=== PATIENT | male | born 1975 | race Caucasian/White ===

== ENCOUNTER 2018-12-31 09:37 | Outpatient (CLI) | payer BC ==
--- NOTE | 2018-12-31 11:43 | Magnetic Resonance Report ---
MRI LUMBAR SPINE WITHOUT CONTRAST INDICATION / CLINICAL INFORMATION: M54.5 LOW BACK PAIN/M51.27 OTHER INTERVERTEBRAL DISC DISPLACEMENT. TECHNIQUE: Multisequence, multiplanar images of the lumbar spine were obtained. COMPARISON: None available. FINDINGS: TRANSITIONAL VERTEBRAL ANATOMY: Based upon the administration of the lowest rib bearing vertebrae I a m assuming that there is partial lumbarization of the first sacral vertebrae. A santamaria image has been cr eated and added to the patient's PACS folder to demonstrate the numbering scheme used in this report. ALIGNMENT: Normal alignment is maintained throughout the lumbar region. VERTEBRAE:Reactive changes secondary to degenerative disc disease are observed at inferior endplate L 5 and superior endplate S1. Otherwise normal bone marrow signal intensity is maintained throughout th e lumbar region. Vertebral morphology is normally preserved throughout. DISC MORPHOLOGY: Disc height and disc signal intensity are reduced at the L5-S1 level. A hypoplastic disc is present at the S1-2 level. Disc height and disc signal intensity are normally maintained thro ughout the remainder of the lumbar region. VISUALIZED SPINAL CORD: Distal thoracic spinal cord, conus and nerve roots of the cauda equina all guo ve an unremarkable appearance. Conus terminates at about the level of the inferior endplate of L1. WMOUH-NI-AAHCC ANALYSIS: L1-2: No significant abnormality. L2-3: No significant abnormality. L3-4: No significant abnormality. L4-5: No significant abnormality. L5-S1: Disc desiccation is noted. There is a large right paracentral and lateral recess disc extrusio n with compression of the thecal sac and compression of the right S1 nerve root in its lateral recess . L5 nerve root neuroforamina are adequately maintained. S1-2: Hypoplastic disc is present at this transitional level. Partial lumbarization of S1 is noted as described above. PARASPINAL SOFT TISSUES: Evaluation of the paraspinous soft tissues reveals no definite abnormalities . IMPRESSION: 1. 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 2. Large right paracentral and lateral recess disc extrusion L5-S1 with compression of the thecal sac and right S1 nerve root. Signer Name: Ruperto Calles MD Signed: 12/31/2018 11:39 AM Workstation Name: [id number]
== END 2018-12-31 09:38 | disposition home or self-care (01) ==
LOC: MRI 09:37
PROVIDERS: ATTEND Internal Medicine
DX: M51.87 Other intervertebral disc disorders, lumbosacral region (principal); M51.27 Other intervertebral disc displacement, lumbosacral region; F17.210 Nicotine dependence, cigarettes, uncomplicated
CPT/HCPCS: 72148

== ENCOUNTER 2019-01-19 09:39 | Observation (INO) | payer BC ==
[2019-01-12 12:40] LABS: Basophils % (Auto) 0.6 % (0.0-1.8); Eosinophils # (Auto) 0.2 K/mm3 (0.0-0.4); Eosinophils % (Auto) 2.3 % (0.0-4.3); Hematocrit 47.9 % (35.5-45.6); Hemoglobin 16.1 gm/dl (11.8-15.2); Lymphocytes # (Auto) 2.2 K/mm3 (1.2-5.4); Lymphocytes % (Auto) 29.3 % (13.4-35.0); Mean Corpuscular HGB Conc 34 % (32-34); Mean Corpuscular Volume 88 fl (84-94); Monocytes # (Auto) 0.3 K/mm3 (0.0-0.8); Monocytes % (Auto) 4.7 % (0.0-7.3); Platelet Count 232 K/mm3 (140-440); Red Blood Count 5.43 M/mm3 (3.65-5.03); Red Cell Distribution Width 13.4 % (13.2-15.2)
[2019-01-12 12:57] LABS: Alanine Aminotransferase 55 units/L (7-56); Albumin 4.8 g/dL (3.9-5); BUN/Creatinine Ratio 20; Blood Urea Nitrogen 14 mg/dL (9-20); Hemolysis Index 12
--- NOTE | 2019-01-12 18:26 | Anesthesia Consultation ---
Anesthesia Consult and Med Hx Date of service: 01/12/19 - Airway Anesthetic Teeth Evaluation: Caps ROM Head & Neck: Adequate Mental/Hyoid Distance: Adequate Mallampati Class: Class II Intubation Access Assessment: Good - Pulmonary Exam CTA: Yes - Cardiac Exam Cardiac Exam: RRR - Pre-Operative Health Status ASA Pre-Surgery Classification: ASA2 Proposed Anesthetic Plan: General - Pulmonary Hx Smoking: Yes (OCC SMOKER ( NOT EVERYDAY)) Hx Sleep Apnea: No (GAGE PRE SCREEN LOW RISK.) - Cardiovascular System Hx Hypertension: No - Central Nervous System Hx Back Pain: Yes (WITH RT LEG PAIN) - Other Systems Hx Alcohol Use: Yes (BEER ON OCCASION) Hx Cancer: No
--- NOTE | 2019-01-19 08:26 | Short Stay Summary ---
Short Stay Documentation Date of service: 01/19/19 - History H&P: obtained from office Past Medical History: No medical history Past Surgical History: No surgical history Social history: no significant social history - Allergies and Medications Current Medications: Allergies No Known Allergies Allergy (Verified 02/06/13 07:03) Home Medications Medication Instructions Recorded Confirmed Last Taken Type HYDROcodone/APAP 5-325 [[place] 1 each PO Q6HR PRN #60 tablet 02/06/13 01/09/19 Unknown Rx 5/325 mg] Active Medications Gabapentin (Gabapentin) 300 mg PO PREOP NR Stop: 01/19/19 23:59 Lactated Ringer's (Lactated Ringers) 1,000 mls @ 100 mls/hr IV DIRECT GAURAV Cefazolin Sodium (Ancef/Sterile Water 2 Gm/20 Ml) 2 gm in 20 mls @ 80 mls/hr IV PREOP NR; Protocol Midazolam HCl (Versed) 2 mg IV PREOP NR Stop: 01/19/19 23:59 - Physical exam General appearance: no acute distress Integumentary: no rash HEENT: Atraumatic Lungs: Clear to auscultation Breasts: deferred Heart: Regular rate Gastrointestinal: normal Male Genitourinary: deferred Female Genitourinary: deferred Rectal Exam: deferred Extremities: no ischemia Neurological: Normal gait, Normal speech, Sensation intact, Other (right foot drop) Short Stay Discharge Plan Follow up with: KURT LAZARO MD [Primary Care Provider] - 7 Days
[~2019-01-19 09:39] MED LIST: GABAPENTIN 300 MG CAP PO NR; MIDAZOLAM 2 MG/2 ML INJ IV NR; ceFAZolin/Water 2 GM/20 ML 2 GM/20 ML SYRINGE IV NR
[2019-01-19] MEDS ORDERED: SODIUM CHLORIDE 0.9% 250ML 250 ML ONE (09:53)
[2019-01-19] MEDS ORDERED: SODIUM CHLORIDE P/F VIAL 10 ML 10 ML ONE (09:53)
[2019-01-19] MEDS ORDERED: LIDOCAINE 1%/EPINEPHRINE 1:100,000 VIAL (20 ML) INFILTRATI ONE ×2 (09:53→12:09)
[2019-01-19] MEDS ORDERED: BACITRACIN 50,000 UNIT VIAL ONE (09:54)
[2019-01-19] MEDS ORDERED: BUPIVACAINE/PF (0.25%) 2.5 MG/ML 30 ML VIAL INFILTRATI ONE (09:56)
[2019-01-19] MEDS ORDERED: THROMBIN (RECOMBINANT) 5,000 UNIT VIAL TP ONE ×3 (09:56→13:00)
[2019-01-19] MEDS ORDERED: CALCIUM CHLORIDE 1,000 MG/10 ML SYRINGE IV ONE (10:07)
[2019-01-19] MEDS: LACTATED RINGERS 1,000 ML IV SCH ×2 (10:15→19:00)
[2019-01-19] MEDS ORDERED: HYDROmorphone 1 MG/1 ML INJ IV PRN ×2 (10:18→14:29)
[2019-01-19] MEDS ORDERED: ONDANSETRON 4 MG/2 ML INJ IV PRN ×2 (10:18→14:29)
--- NOTE | 2019-01-19 10:18 | Anesthesia Day of Surgery ---
Anesthesia Day of Surgery - Day of Surgery Patient Examined: Yes Patient H&P Reviewed: Yes Patient is NPO: Yes
[2019-01-19] MEDS ORDERED: GELATIN SPONGE SIZE 100 TP ONE ×2 (11:04→12:30)
[2019-01-19] MEDS ORDERED: HYDROmorphone 1 MG/1 ML INJ ONE (11:12)
[2019-01-19] MEDS ORDERED: ROCURONIUM 50 MG/5 ML INJ IV ONE ×2 (11:12→13:30)
[2019-01-19] MEDS ORDERED: LIDOCAINE MPF (2%) 20 MG/1 ML VIAL 5 ML ONE (11:12)
[2019-01-19] MEDS ORDERED: PROPOFOL 200 MG/20 ML VIAL IV ONE (11:12)
[2019-01-19] MEDS ORDERED: SODIUM CHLORIDE 0.9% P/F 10 ML VIAL INFILTRATI ONE (12:00)
[2019-01-19] MEDS ORDERED: SODIUM CHLORIDE 0.9% 250 ML IVPB IR ONE (12:15)
[2019-01-19] MEDS ORDERED: BACITRACIN 50,000 UNIT VIAL IR ONE (13:03)
[2019-01-19] MEDS ORDERED: methylPREDNISolone ACETATE 40 MG/1 ML INJ ONE (13:36)
[2019-01-19] MEDS ORDERED: methylPREDNISolone ACETATE 40 MG/1 ML INJ INTRA-ARTI ONE (13:36)
[2019-01-19] MEDS ORDERED: BUPIVACAINE/PF (0.5%) 5 MG/1 ML 30 ML VIAL INFILTRATI ONE ×2 (13:52→13:53)
[2019-01-19] MEDS ORDERED: NEOSTIGMINE 10MG/10 ML INJ MDV ONE (14:23)
[2019-01-19] MEDS ORDERED: GLYCOPYRROLATE 0.4 MG/2 ML INJ ONE (14:23)
[2019-01-19] MEDS ORDERED: ONDANSETRON 4 MG/2 ML INJ ONE (14:23)
[2019-01-19] MEDS ORDERED: KETOROLAC 30 MG/1 ML INJ ONE (14:23)
[2019-01-19] MEDS ORDERED: PROMETHAZINE 25 MG RECT SUPP PR PRN (14:29)
[2019-01-19] MEDS ORDERED: CYCLOBENZAPRINE 10 MG TAB PO PRN (14:29)
[2019-01-19] MEDS ORDERED: ZOLPIDEM 5 MG TAB PO PRN (14:29)
[2019-01-19] MEDS ORDERED: NALOXONE 0.4 MG/1 ML INJ IV PRN (14:29)
[2019-01-19] MEDS ORDERED: METOCLOPRAMIDE 10 MG/2 ML INJ IV PRN (14:29)
[2019-01-19] MEDS ORDERED: MORPHINE 4 MG/1 ML INJ IV PRN (14:29)
[2019-01-19] MEDS ORDERED: oxyCODONE /ACETAMINOPHEN 5-325MG TAB PO PRN (14:29)
[2019-01-19] MEDS ORDERED: ACETAMINOPHEN 325 MG TAB PO PRN (14:29)
[2019-01-19] MEDS ORDERED: KETOROLAC 30 MG/1 ML INJ IV PRN (14:29)
[2019-01-19] MEDS ORDERED: BENZOCAINE/MENTHOL LOZENGE MM PRN (14:29)
--- NOTE | 2019-01-19 14:42 | Operative Report ---
Operative Report Operative Report: DATE OF PROCEDURE: 01/19/2019 PREOPERATIVE DIAGNOSIS: L5-S1 herniated disc POSTOPERATIVE DIAGNOSIS: 5 S1 herniated disc OPERATIVE PROCEDURE: 1. L5 S1 hemilaminotomy for disc resection 2. A pair of CSF leak SURGEON: Josie Khan MD HEAD WAITER/WAITRESS BANQUET: ANESTHESIA: General endotracheal anesthesia EBL: Minimal INDICATIONS FOR PROCEDURE: 3-year-old male with chief complaint of acute onset of right leg pain numbness and weakness he had associated weakness in the gastroc in his muscle as well. He had some corresponding numbness in the L5 distribution. MRI lumbar spine showed lumbarized S1 segment which led to the counting of L5-S1 as the disc FINDINGS: Large herniated disc under high pressure at L5-S1 PROCEDURE: Patient was brought to the operating room and on his gurney underwent general endotracheal anesthesia without complication. After lines replaced was turned in the prone position and secured. The lower lumbar spine was prepped and draped in sterile fashion. Fluoroscopy was used to identify the appropriate level for the incision in that area was infiltrated 1% lidocaine with epinephrine. Skin was opened using a 10 blade and the bar muscles along the right side of the spinous process were reflected using monopolar cautery. The lamina of L5 and S1 were identified and confirmed using fluoroscopy. Self- retaining retractors were placed and high-speed drill was used to create a laminotomy defect in the inferior aspect of L5 and superior aspect of S1. Ostectomy was performed. All removing the lamina dura was puntured. This was repaired primarily with a 4-0 Nurolon by Tisseel and DuraGen. The nerve root and thecal sac were identified and retracted medially. The disc space was identified and opened using a 11 blade. Disc material was removed in a piecemeal fashion. The disc space was interrogated using pituitary rongeur and curet. Once the nerve root was noted to be decompressed both superiorly and inferiorly along the posterior aspect of the vertebral body the disc space was irrigated using antibiotic solution. A piece of Gelfoam soaked in Depo-Medrol was laid over the nerve root and the paraspinous muscles [place] 1% lidocaine with epinephrine for postop pain management. The muscles were approximated using 0 Vicryl and finally 4-0 Monocryl for the skin. The lap sponge and needle count was correct at the end of the procedure, the patient tolerated the procedure well and was taken to the recovery room extubated and in good condition.
[2019-01-19] MEDS ORDERED: SODIUM CHLORIDE 0.9% 1000 ML 1,000 ML IV SCH (15:00)
--- NOTE | 2019-01-19 15:02 | Post Anesthesia Evaluation ---
- Post Anesthesia Evaluation Patient Participated: Yes Airway Patent: Yes Stable Respiratory Function: Yes Nausea/Vomiting: No Temp > 96.8F: Yes Pain Manageable: Yes Adequeate Hydration: Yes Anesthesia Complications: No Block Receding Appropriately: Not Applicable Patient on Ventilator: No
--- NOTE | 2019-01-19 15:21 | XRay Report ---
LUMBAR SPINE, ONE VIEW INDICATION: Herniated disc L-5, S-1.. COMPARISON: None. IMPRESSION: 0.2 minutes of fluoroscopy time was provided by radiology for lumbar surgery by the neur osurgeon. A single lateral view of the lower lumbosacral spine is presented. Metallic surgical devic es are noted posterior to L5 during surgery. There is normal height and alignment of the visualized l umbar vertebral bodies extending from L3-S4. Mild to moderate degenerative changes are suspected at L 5-S1. No acute abnormality is appreciated. Signer Name: Carmine Mahajan Jr, MD Signed: 01/19/2019 3:17 PM Workstation Name: [id number]
[2019-01-19] MEDS: HYDROcodone/ACETAMINOPHEN 5-325 MG TAB PO PRN (19:00)
[2019-01-19] MEDS: ceFAZolin/NS 1 GM/50 ML 1 GM/50 ML BAG IV SCH ×2 (19:01→22:40)
[2019-01-20] MEDS: HYDROcodone/ACETAMINOPHEN 5-325 MG TAB PO PRN (00:30)
[2019-01-20 16:01] VITALS: BP 104/59
== END 2019-01-20 17:50 | disposition home or self-care (01) ==
LOC: OR 09:39 → 3B-SURG 09:40
PROVIDERS: ADMIT Neurological Surgery; ATTEND Neurological Surgery
DX: M51.27 Other intervertebral disc displacement, lumbosacral region (principal)
CPT/HCPCS: 36415; 63030; 72020; 80053; 85025; 88304; 96365; 96366; 96375; 97110; 97116; 97162; 97530; A4649; C9250; G0378; J0690; J1030; J1170; J1885; J2250; J2405; J2704; J2710; J7050; J7120